=== PATIENT | female | born 1950 | race Caucasian/White ===

== ENCOUNTER → 2017-01-27 | Outpatient (CLI) | payer OTHER ==
[~2017-01-27] MED LIST: AMT25 PO; CETI10TA10 PO; FIBETAB2 PO; HYDC25 PO; LISI-461 PO; MELA3TAB12 PO; OPTIRAY 320 IV PRN; PRLSR20 PO; TRIA1SPR4 NAE
--- NOTE | 2017-01-27 13:39 | DIAGNOSTIC IMAGING REPORT ---
CT ANGIOGRAM OF THE CHEST CLINICAL HISTORY: Dyspnea. COMPARISON STUDY: No priors. TECHNIQUE: Following the IV administration of 75 cc of Optiray 320, CT angiogram of the chest was performed from the upper abdomen to the thoracic inlet utilizing the pulmonary embolus protocol. Images are reviewed in the axial, sagittal, and coronal planes. 3-D MIPS images are created and assessed. IV contrast was administered without complication. CT DOSE: 648.03 mGy.cm FINDINGS: Thyroid: Atrophic. Thoracic aorta: There is mild atherosclerotic calcification of the thoracic aorta, which is normal in caliber and demonstrates standard 3-vessel arch anatomy. No dissection is seen. Pulmonary vasculature: The pulmonary trunk is normal in caliber. There are no filling defects identified in main, lobar, or segmental pulmonary branches to suggest pulmonary embolus. Heart: The heart is normal in size and configuration, and without pericardial effusion. There are coronary artery calcifications. Lungs and pleural spaces: There is groundglass change seen throughout both lungs. No lobar consolidation or pleural effusion is ill-defined. Dependent atelectasis is observed. The trachea and central airways are clear. Mediastinum: There is no mediastinal lymphadenopathy. Nadine: Clear. Axillae: There is no axillary lymphadenopathy. Upper abdomen: There is a small hiatal hernia. Hepatic steatosis is suspected. Skeletal structures: The skeletal structures are osteopenic. No lytic or blastic bony lesions are seen. IMPRESSION: 1. There is no evidence of pulmonary embolus in the main, lobar, or segmental pulmonary arteries. 2. Groundglass opacities are present throughout both lungs. This likely represents an infectious/inflammatory pneumonitis. Clinical correlation will be required. 3. There is no lobar consolidation or pleural effusion identified. Electronically signed by: Ghanshyam Wayne M.D. 01/27/2017 1:38 PM Dictated Date/Time: 01/27/2017 1:34 PM
== END | disposition home or self-care (01) ==
LOC: C.CTS 12:42
PROVIDERS: ATTEND Internal Medicine
DX: R06.02 Shortness of breath (principal)